=== PATIENT | female | born 1950 | race Caucasian/White ===

== ENCOUNTER 2021-08-10 17:17 | Inpatient (IN) ==
[2021-08-11] MEDS ORDERED: Ipratropium/Albuterol Neb 3 ML IH PRN (14:05)
[2021-08-11] MEDS: Acetaminophen 325 MG TABLET PO PRN (22:04)
[2021-08-11] MEDS: Megestrol Acetate 400 MG/10 ML UDC PO SCH (22:05)
[2021-08-11] MEDS: Gabapentin 300 MG CAPSULE PO SCH (22:06)
[2021-08-11] MEDS: Benzonatate 100 MG CAPSULE PO PRN (22:06)
[2021-08-11] MEDS: Budesonide/Formoterol 160/4.5 1 PUFF INH IH SCH (22:45)
[2021-08-12] MEDS: *HR* Enoxaparin 40 MG/0.4 ML SYRINGE SQ SCH (06:25)
[2021-08-12] MEDS ORDERED: Tiotropium 10 INH DOSE IH ONE (08:34)
[2021-08-12 09:39] LABS: Basophils # 0.1 K/mcL (0.0-0.2); Basophils % 0.8 %; Eosinophils # 0.1 K/mcL (0.0-0.6); Eosinophils % 0.8 %; Hematocrit 32.1 % (35.3-44.9); Hemoglobin 9.9 g/dL (11.5-15.4); Lymphocytes # 1.5 K/mcL (0.6-4.6); Lymphocytes % 18.9 %; Mean Corpuscular HGB Conc 30.8 g/dL (31.6-35.5); Mean Corpuscular Hemoglobin 30.4 pg (28.0-33.3); Mean Corpuscular Volume 98.5 fL (83.0-100.0); Mean Platelet Volume 8.8 fL (9.4-12.4); Monocytes # 1.3 K/mcL (0.0-1.3); Monocytes % 17.1 %; Neutrophils # 4.5 K/mcL (1.6-8.9); Platelet Count 776 K/mcL (140-400); Red Blood Count 3.26 M/mcL (3.82-4.97); Red Cell Distribution Width 17.3 % (11.5-14.5); Segmented Neutrophils % 58.4 %; White Blood Count 7.7 K/mcL (4.3-11.1)
[2021-08-12] MEDS: Budesonide/Formoterol 160/4.5 1 PUFF INH IH SCH ×2 (09:45→22:44)
[2021-08-12] MEDS: Tiotropium 10 INH DOSE IH SCH (09:46)
[2021-08-12 09:59] LABS: BUN/Creatinine Ratio 26 (6-26); Blood Urea Nitrogen 13 mg/dL (8-23); Calcium 8.9 mg/dL (8.6-10.3); Carbon Dioxide 26 mEq/L (23-29); Chloride 102 mEq/L (98-107); Glucose 88 mg/dL (70-105); Osmolality,Calculated 282 (280-300); Potassium 3.6 mEq/L (3.5-5.1); Sodium 136 mEq/L (136-145); eGFR For African Americans > 60 (> 60); eGFR For Non-African Americans > 60 (> 60)
[2021-08-12] MEDS: Cholecalciferol (D-3) 1,000 UNIT (25MCG) TABLET PO SCH (11:54)
[2021-08-12] MEDS: Aspirin Enteric Coated 81 MG Tablet PO SCH (11:54)
[2021-08-12] MEDS: hydroCHLOROthiazide 25 MG TABLET PO SCH (11:55)
[2021-08-12] MEDS: lisinopriL 5 MG TABLET PO SCH (11:55)
[2021-08-12] MEDS: Folic Acid 1 MG TABLET PO SCH (11:55)
[2021-08-12] MEDS: Gabapentin 300 MG CAPSULE PO SCH ×2 (11:55→21:53)
[2021-08-12] MEDS: Megestrol Acetate 400 MG/10 ML UDC PO SCH ×2 (11:56→21:52)
[2021-08-12] MEDS: Acetaminophen 325 MG TABLET PO PRN (17:30)
[2021-08-12] MEDS: Benzonatate 100 MG CAPSULE PO PRN (21:52)
[2021-08-13] MEDS: *HR* Enoxaparin 40 MG/0.4 ML SYRINGE SQ SCH (06:36)
[2021-08-13] MEDS: lisinopriL 5 MG TABLET PO SCH (09:16)
[2021-08-13] MEDS: Cholecalciferol (D-3) 1,000 UNIT (25MCG) TABLET PO SCH (09:16)
[2021-08-13] MEDS: Folic Acid 1 MG TABLET PO SCH (09:17)
[2021-08-13] MEDS: Gabapentin 300 MG CAPSULE PO SCH ×2 (09:18→22:35)
[2021-08-13] MEDS: hydroCHLOROthiazide 25 MG TABLET PO SCH (09:18)
[2021-08-13] MEDS: Megestrol Acetate 400 MG/10 ML UDC PO SCH ×2 (09:18→22:35)
[2021-08-13] MEDS: Aspirin Enteric Coated 81 MG Tablet PO SCH (09:18)
[2021-08-13] MEDS: Budesonide/Formoterol 160/4.5 1 PUFF INH IH SCH ×2 (11:35→22:26)
[2021-08-13] MEDS: Tiotropium 10 INH DOSE IH SCH (11:35)
[2021-08-13] MEDS: Acetaminophen 325 MG TABLET PO PRN (11:40)
[2021-08-14] MEDS: *HR* Enoxaparin 40 MG/0.4 ML SYRINGE SQ SCH (06:29)
[2021-08-14] MEDS: Cholecalciferol (D-3) 1,000 UNIT (25MCG) TABLET PO SCH (10:00)
[2021-08-14] MEDS: Megestrol Acetate 400 MG/10 ML UDC PO SCH ×2 (10:00→20:18)
[2021-08-14] MEDS: Gabapentin 300 MG CAPSULE PO SCH ×2 (10:00→20:18)
[2021-08-14] MEDS: Aspirin Enteric Coated 81 MG Tablet PO SCH (10:00)
[2021-08-14] MEDS: Folic Acid 1 MG TABLET PO SCH (10:00)
[2021-08-14] MEDS: lisinopriL 5 MG TABLET PO SCH (10:01)
[2021-08-14] MEDS: hydroCHLOROthiazide 25 MG TABLET PO SCH (10:01)
[2021-08-14] MEDS: Tiotropium 10 INH DOSE IH SCH (10:40)
[2021-08-14] MEDS: Budesonide/Formoterol 160/4.5 1 PUFF INH IH SCH ×2 (10:40→22:30)
[2021-08-14] MEDS: Acetaminophen 325 MG TABLET PO PRN ×2 (12:26→21:36)
[2021-08-15] MEDS: *HR* Enoxaparin 40 MG/0.4 ML SYRINGE SQ SCH (05:55)
[2021-08-15] MEDS: Megestrol Acetate 400 MG/10 ML UDC PO SCH ×2 (08:33→19:37)
[2021-08-15] MEDS: Aspirin Enteric Coated 81 MG Tablet PO SCH (08:33)
[2021-08-15] MEDS: Acetaminophen 325 MG TABLET PO PRN ×3 (08:33→20:36)
[2021-08-15] MEDS: Gabapentin 300 MG CAPSULE PO SCH ×2 (08:33→19:37)
[2021-08-15] MEDS: Cholecalciferol (D-3) 1,000 UNIT (25MCG) TABLET PO SCH (08:34)
[2021-08-15] MEDS: hydroCHLOROthiazide 25 MG TABLET PO SCH (08:34)
[2021-08-15] MEDS: lisinopriL 5 MG TABLET PO SCH (08:34)
[2021-08-15] MEDS: Folic Acid 1 MG TABLET PO SCH (08:34)
[2021-08-15] MEDS: Budesonide/Formoterol 160/4.5 1 PUFF INH IH SCH ×2 (09:28→22:32)
[2021-08-15] MEDS: Tiotropium 10 INH DOSE IH SCH (09:29)
[2021-08-16] MEDS: *HR* Enoxaparin 40 MG/0.4 ML SYRINGE SQ SCH (06:31)
[2021-08-16] MEDS: Cholecalciferol (D-3) 1,000 UNIT (25MCG) TABLET PO SCH (08:15)
[2021-08-16] MEDS: Folic Acid 1 MG TABLET PO SCH (08:15)
[2021-08-16] MEDS: Megestrol Acetate 400 MG/10 ML UDC PO SCH ×2 (08:15→20:13)
[2021-08-16] MEDS: Aspirin Enteric Coated 81 MG Tablet PO SCH (08:15)
[2021-08-16] MEDS: Acetaminophen 325 MG TABLET PO PRN ×2 (08:15→20:13)
[2021-08-16] MEDS: hydroCHLOROthiazide 25 MG TABLET PO SCH (08:16)
[2021-08-16] MEDS: lisinopriL 5 MG TABLET PO SCH (08:16)
[2021-08-16] MEDS: Gabapentin 300 MG CAPSULE PO SCH ×2 (08:16→20:13)
[2021-08-16 08:52] LABS: Basophils # 0.1 K/mcL (0.0-0.2); Basophils % 0.4 %; Eosinophils # 0.1 K/mcL (0.0-0.6); Eosinophils % 0.5 %; Hematocrit 35.5 % (35.3-44.9); Immature Granulocytes % 2.5 % (0-4); Lymphocytes % 17.5 %; Mean Corpuscular Hemoglobin 29.7 pg (28.0-33.3); Mean Corpuscular Volume 95.9 fL (83.0-100.0); Mean Platelet Volume 8.3 fL (9.4-12.4); Monocytes # 1.4 K/mcL (0.0-1.3); Monocytes % 12.1 %; Neutrophils # 7.6 K/mcL (1.6-8.9); Platelet Count 857 K/mcL (140-400); Red Cell Distribution Width 17.6 % (11.5-14.5); White Blood Count 11.3 K/mcL (4.3-11.1)
[2021-08-16 09:06] LABS: BUN/Creatinine Ratio 23 (6-26); Blood Urea Nitrogen 14 mg/dL (8-23); Calcium 9.3 mg/dL (8.6-10.3); Carbon Dioxide 26 mEq/L (23-29); Chloride 98 mEq/L (98-107); Glucose 86 mg/dL (70-105); Osmolality,Calculated 270 (280-300); Potassium 4.1 mEq/L (3.5-5.1); Sodium 130 mEq/L (136-145); eGFR For African Americans > 60 (> 60); eGFR For Non-African Americans > 60 (> 60)
[2021-08-16] MEDS: Budesonide/Formoterol 160/4.5 1 PUFF INH IH SCH ×2 (09:46→21:43)
[2021-08-16] MEDS: Tiotropium 10 INH DOSE IH SCH (09:46)
[2021-08-17] MEDS: *HR* Enoxaparin 40 MG/0.4 ML SYRINGE SQ SCH (05:23)
[2021-08-17] MEDS: Megestrol Acetate 400 MG/10 ML UDC PO SCH ×2 (09:12→19:48)
[2021-08-17] MEDS: Cholecalciferol (D-3) 1,000 UNIT (25MCG) TABLET PO SCH (09:13)
[2021-08-17] MEDS: Folic Acid 1 MG TABLET PO SCH (09:13)
[2021-08-17] MEDS: Gabapentin 300 MG CAPSULE PO SCH ×2 (09:13→19:47)
[2021-08-17] MEDS: hydroCHLOROthiazide 25 MG TABLET PO SCH (09:13)
[2021-08-17] MEDS: lisinopriL 5 MG TABLET PO SCH (09:13)
[2021-08-17] MEDS: Aspirin Enteric Coated 81 MG Tablet PO SCH (09:13)
[2021-08-17] MEDS: Budesonide/Formoterol 160/4.5 1 PUFF INH IH SCH ×2 (10:09→21:04)
[2021-08-17] MEDS: Tiotropium 10 INH DOSE IH SCH (10:09)
[2021-08-17] MEDS: Acetaminophen 325 MG TABLET PO PRN ×2 (11:47→19:47)
[2021-08-18] MEDS: *HR* Enoxaparin 40 MG/0.4 ML SYRINGE SQ SCH (05:18)
[2021-08-18] MEDS: Cholecalciferol (D-3) 1,000 UNIT (25MCG) TABLET PO SCH (09:35)
[2021-08-18] MEDS: Acetaminophen 325 MG TABLET PO PRN (09:35)
[2021-08-18] MEDS: Aspirin Enteric Coated 81 MG Tablet PO SCH (09:35)
[2021-08-18] MEDS: Folic Acid 1 MG TABLET PO SCH (09:35)
[2021-08-18] MEDS: Gabapentin 300 MG CAPSULE PO SCH ×2 (09:35→23:11)
[2021-08-18] MEDS: Megestrol Acetate 400 MG/10 ML UDC PO SCH ×2 (09:35→23:02)
[2021-08-18] MEDS: hydroCHLOROthiazide 25 MG TABLET PO SCH (09:38)
[2021-08-18] MEDS: Tiotropium 10 INH DOSE IH SCH (09:46)
[2021-08-18] MEDS: Budesonide/Formoterol 160/4.5 1 PUFF INH IH SCH ×2 (09:46→21:59)
[2021-08-18] MEDS ORDERED: Ondansetron ODT 4 MG TAB.RAPDIS SL PRN (14:47)
[2021-08-19] MEDS: *HR* Enoxaparin 40 MG/0.4 ML SYRINGE SQ SCH (06:14)
[2021-08-19] MEDS: lisinopriL 5 MG TABLET PO SCH (07:41)
[2021-08-19] MEDS: Cholecalciferol (D-3) 1,000 UNIT (25MCG) TABLET PO SCH (08:14)
[2021-08-19] MEDS: Gabapentin 300 MG CAPSULE PO SCH ×2 (08:14→20:01)
[2021-08-19] MEDS: Aspirin Enteric Coated 81 MG Tablet PO SCH (08:14)
[2021-08-19] MEDS: Folic Acid 1 MG TABLET PO SCH (08:14)
[2021-08-19] MEDS: Megestrol Acetate 400 MG/10 ML UDC PO SCH ×2 (08:14→20:00)
[2021-08-19] MEDS: hydroCHLOROthiazide 25 MG TABLET PO SCH (08:15)
[2021-08-19] MEDS: Sennosides/Docusate Sodium TABLET PO SCH ×2 (11:47→20:00)
[2021-08-19] MEDS: Budesonide/Formoterol 160/4.5 1 PUFF INH IH SCH ×2 (12:28→22:31)
[2021-08-19] MEDS: Tiotropium 10 INH DOSE IH SCH (12:28)
[2021-08-19] MEDS: Acetaminophen 325 MG TABLET PO PRN (13:33)
[2021-08-20] MEDS: *HR* Enoxaparin 40 MG/0.4 ML SYRINGE SQ SCH (05:39)
[2021-08-20] MEDS: hydroCHLOROthiazide 25 MG TABLET PO SCH (09:33)
[2021-08-20] MEDS: Folic Acid 1 MG TABLET PO SCH (09:33)
[2021-08-20] MEDS: Sennosides/Docusate Sodium TABLET PO SCH ×2 (09:33→19:51)
[2021-08-20] MEDS: Aspirin Enteric Coated 81 MG Tablet PO SCH (09:33)
[2021-08-20] MEDS: Cholecalciferol (D-3) 1,000 UNIT (25MCG) TABLET PO SCH (09:34)
[2021-08-20] MEDS: Megestrol Acetate 400 MG/10 ML UDC PO SCH ×2 (09:34→19:50)
[2021-08-20] MEDS: Gabapentin 300 MG CAPSULE PO SCH ×2 (09:34→19:51)
[2021-08-20] MEDS: Budesonide/Formoterol 160/4.5 1 PUFF INH IH SCH ×2 (09:46→22:58)
[2021-08-20] MEDS: Tiotropium 10 INH DOSE IH SCH (09:46)
[2021-08-20] MEDS: Acetaminophen 325 MG TABLET PO PRN (11:40)
[2021-08-21] MEDS: *HR* Enoxaparin 40 MG/0.4 ML SYRINGE SQ SCH (05:38)
[2021-08-21 07:43] LABS: Basophils % 0.2 %; Eosinophils # 0.2 K/mcL (0.0-0.6); Eosinophils % 1.3 %; Hematocrit 31.2 % (35.3-44.9); Hemoglobin 9.8 g/dL (11.5-15.4); Immature Granulocytes % 1.2 % (0-4); Lymphocytes # 1.9 K/mcL (0.6-4.6); Mean Corpuscular HGB Conc 31.4 g/dL (31.6-35.5); Mean Corpuscular Hemoglobin 30.3 pg (28.0-33.3); Mean Corpuscular Volume 96.6 fL (83.0-100.0); Mean Platelet Volume 8.7 fL (9.4-12.4); Monocytes # 1.6 K/mcL (0.0-1.3); Monocytes % 13.4 %; Neutrophils # 8.2 K/mcL (1.6-8.9); Platelet Count 644 K/mcL (140-400); Red Blood Count 3.23 M/mcL (3.82-4.97); Red Cell Distribution Width 17.6 % (11.5-14.5); Segmented Neutrophils % 67.9 %
[2021-08-21] MEDS: hydroCHLOROthiazide 25 MG TABLET PO SCH (07:53)
[2021-08-21] MEDS: Gabapentin 300 MG CAPSULE PO SCH ×2 (07:58→19:57)
[2021-08-21] MEDS: Cholecalciferol (D-3) 1,000 UNIT (25MCG) TABLET PO SCH (07:58)
[2021-08-21] MEDS: Megestrol Acetate 400 MG/10 ML UDC PO SCH ×2 (07:58→19:58)
[2021-08-21] MEDS: Folic Acid 1 MG TABLET PO SCH (07:58)
[2021-08-21] MEDS: Aspirin Enteric Coated 81 MG Tablet PO SCH (07:58)
[2021-08-21] MEDS: Sennosides/Docusate Sodium TABLET PO SCH ×2 (07:58→19:57)
[2021-08-21 08:10] LABS: BUN/Creatinine Ratio 29 (6-26); Blood Urea Nitrogen 15 mg/dL (8-23); Calcium 8.9 mg/dL (8.6-10.3); Carbon Dioxide 24 mEq/L (23-29); Chloride 99 mEq/L (98-107); Glucose 86 mg/dL (70-105); Osmolality,Calculated 272 (280-300); Potassium 3.8 mEq/L (3.5-5.1); Sodium 131 mEq/L (136-145); eGFR For African Americans > 60 (> 60); eGFR For Non-African Americans > 60 (> 60)
[2021-08-21] MEDS: Tiotropium 10 INH DOSE IH SCH (09:45)
[2021-08-21] MEDS: Budesonide/Formoterol 160/4.5 1 PUFF INH IH SCH ×2 (09:45→22:08)
[2021-08-21] MEDS: Acetaminophen 325 MG TABLET PO PRN (19:58)
[2021-08-22] MEDS: *HR* Enoxaparin 40 MG/0.4 ML SYRINGE SQ SCH (06:06)
[2021-08-22] MEDS: hydroCHLOROthiazide 25 MG TABLET PO SCH (08:35)
[2021-08-22] MEDS: Megestrol Acetate 400 MG/10 ML UDC PO SCH ×2 (08:36→20:44)
[2021-08-22] MEDS: Folic Acid 1 MG TABLET PO SCH (08:37)
[2021-08-22] MEDS: Gabapentin 300 MG CAPSULE PO SCH ×2 (08:37→20:43)
[2021-08-22] MEDS: Aspirin Enteric Coated 81 MG Tablet PO SCH (08:37)
[2021-08-22] MEDS: Sennosides/Docusate Sodium TABLET PO SCH ×2 (08:38→20:43)
[2021-08-22] MEDS: Cholecalciferol (D-3) 1,000 UNIT (25MCG) TABLET PO SCH (08:38)
[2021-08-22] MEDS: Budesonide/Formoterol 160/4.5 1 PUFF INH IH SCH ×2 (09:01→19:37)
[2021-08-22] MEDS: Tiotropium 10 INH DOSE IH SCH (09:01)
[2021-08-23] MEDS: *HR* Enoxaparin 40 MG/0.4 ML SYRINGE SQ SCH (05:18)
[2021-08-23] MEDS: Sennosides/Docusate Sodium TABLET PO SCH ×2 (08:41→19:47)
[2021-08-23] MEDS: Aspirin Enteric Coated 81 MG Tablet PO SCH (08:41)
[2021-08-23] MEDS: Megestrol Acetate 400 MG/10 ML UDC PO SCH ×2 (08:41→19:47)
[2021-08-23] MEDS: Gabapentin 300 MG CAPSULE PO SCH ×2 (08:42→19:47)
[2021-08-23] MEDS: Cholecalciferol (D-3) 1,000 UNIT (25MCG) TABLET PO SCH (08:42)
[2021-08-23] MEDS: Folic Acid 1 MG TABLET PO SCH (08:42)
[2021-08-23] MEDS: Tiotropium 10 INH DOSE IH SCH (10:40)
[2021-08-23] MEDS: Budesonide/Formoterol 160/4.5 1 PUFF INH IH SCH ×2 (10:40→21:24)
[2021-08-23] MEDS: Acetaminophen 325 MG TABLET PO PRN (18:08)
[2021-08-24] MEDS: *HR* Enoxaparin 40 MG/0.4 ML SYRINGE SQ SCH (06:11)
[2021-08-24] MEDS: Tiotropium 10 INH DOSE IH SCH (10:59)
[2021-08-24] MEDS: Budesonide/Formoterol 160/4.5 1 PUFF INH IH SCH ×2 (10:59→22:15)
[2021-08-24] MEDS: Cholecalciferol (D-3) 1,000 UNIT (25MCG) TABLET PO SCH (11:12)
[2021-08-24] MEDS: Aspirin Enteric Coated 81 MG Tablet PO SCH (11:12)
[2021-08-24] MEDS: Sennosides/Docusate Sodium TABLET PO SCH ×2 (11:12→19:49)
[2021-08-24] MEDS: Megestrol Acetate 400 MG/10 ML UDC PO SCH ×2 (11:12→19:50)
[2021-08-24] MEDS: Gabapentin 300 MG CAPSULE PO SCH ×2 (11:12→19:50)
[2021-08-24] MEDS: Folic Acid 1 MG TABLET PO SCH (11:12)
[2021-08-24] MEDS: Acetaminophen 325 MG TABLET PO PRN ×2 (11:27→19:50)
[2021-08-25] MEDS: *HR* Enoxaparin 40 MG/0.4 ML SYRINGE SQ SCH (05:24)
[2021-08-25] MEDS: Tiotropium 10 INH DOSE IH SCH (09:12)
[2021-08-25] MEDS: Budesonide/Formoterol 160/4.5 1 PUFF INH IH SCH ×2 (09:12→22:06)
[2021-08-25] MEDS: Gabapentin 300 MG CAPSULE PO SCH ×2 (09:33→19:43)
[2021-08-25] MEDS: Aspirin Enteric Coated 81 MG Tablet PO SCH (09:33)
[2021-08-25] MEDS: Sennosides/Docusate Sodium TABLET PO SCH ×2 (09:33→19:43)
[2021-08-25] MEDS: Cholecalciferol (D-3) 1,000 UNIT (25MCG) TABLET PO SCH (09:34)
[2021-08-25] MEDS: Folic Acid 1 MG TABLET PO SCH (09:34)
[2021-08-25] MEDS: Megestrol Acetate 400 MG/10 ML UDC PO SCH ×2 (09:34→19:43)
[2021-08-25] MEDS: Acetaminophen 325 MG TABLET PO PRN (17:05)
[2021-08-26] MEDS: *HR* Enoxaparin 40 MG/0.4 ML SYRINGE SQ SCH (05:36)
[2021-08-26] MEDS: Cholecalciferol (D-3) 1,000 UNIT (25MCG) TABLET PO SCH (09:02)
[2021-08-26] MEDS: Gabapentin 300 MG CAPSULE PO SCH ×2 (09:03→21:40)
[2021-08-26] MEDS: Aspirin Enteric Coated 81 MG Tablet PO SCH (09:03)
[2021-08-26] MEDS: Folic Acid 1 MG TABLET PO SCH (09:03)
[2021-08-26] MEDS: Sennosides/Docusate Sodium TABLET PO SCH ×2 (09:03→21:40)
[2021-08-26] MEDS: Megestrol Acetate 400 MG/10 ML UDC PO SCH ×2 (09:05→21:39)
[2021-08-26] MEDS: Budesonide/Formoterol 160/4.5 1 PUFF INH IH SCH (09:45)
[2021-08-26] MEDS: Tiotropium 10 INH DOSE IH SCH (09:45)
[2021-08-26] MEDS: Acetaminophen 325 MG TABLET PO PRN (16:50)
[2021-08-27] MEDS: Budesonide/Formoterol 160/4.5 1 PUFF INH IH SCH ×3 (01:24→21:56)
[2021-08-27] MEDS: *HR* Enoxaparin 40 MG/0.4 ML SYRINGE SQ SCH (05:34)
[2021-08-27] MEDS: Cholecalciferol (D-3) 1,000 UNIT (25MCG) TABLET PO SCH (09:45)
[2021-08-27] MEDS: Aspirin Enteric Coated 81 MG Tablet PO SCH (09:45)
[2021-08-27] MEDS: Gabapentin 300 MG CAPSULE PO SCH ×2 (09:46→20:11)
[2021-08-27] MEDS: Sennosides/Docusate Sodium TABLET PO SCH ×2 (09:46→20:11)
[2021-08-27] MEDS: Folic Acid 1 MG TABLET PO SCH (09:47)
[2021-08-27] MEDS: Megestrol Acetate 400 MG/10 ML UDC PO SCH ×2 (09:48→20:12)
[2021-08-27] MEDS: Tiotropium 10 INH DOSE IH SCH (10:30)
[2021-08-27] MEDS: Acetaminophen 325 MG TABLET PO PRN (20:16)
[2021-08-28] MEDS: *HR* Enoxaparin 40 MG/0.4 ML SYRINGE SQ SCH (05:53)
[2021-08-28] MEDS: Acetaminophen 325 MG TABLET PO PRN ×2 (05:53→21:27)
[2021-08-28 09:50] LABS: Basophils # 0.1 K/mcL (0.0-0.2); Basophils % 0.5 %; Eosinophils # 0.5 K/mcL (0.0-0.6); Eosinophils % 5.5 %; Hematocrit 34.2 % (35.3-44.9); Hemoglobin 10.6 g/dL (11.5-15.4); Immature Granulocytes % 1.3 % (0-4); Lymphocytes % 19.9 %; Mean Corpuscular Hemoglobin 30.4 pg (28.0-33.3); Mean Platelet Volume 8.1 fL (9.4-12.4); Monocytes # 1.1 K/mcL (0.0-1.3); Monocytes % 10.8 %; Neutrophils # 6.1 K/mcL (1.6-8.9); Platelet Count 379 K/mcL (140-400); Red Blood Count 3.49 M/mcL (3.82-4.97); Red Cell Distribution Width 18.2 % (11.5-14.5); White Blood Count 9.8 K/mcL (4.3-11.1)
[2021-08-28] MEDS: Folic Acid 1 MG TABLET PO SCH (10:09)
[2021-08-28] MEDS: Gabapentin 300 MG CAPSULE PO SCH ×2 (10:09→21:29)
[2021-08-28] MEDS: Cholecalciferol (D-3) 1,000 UNIT (25MCG) TABLET PO SCH (10:09)
[2021-08-28] MEDS: Aspirin Enteric Coated 81 MG Tablet PO SCH (10:09)
[2021-08-28] MEDS: Sennosides/Docusate Sodium TABLET PO SCH ×2 (10:10→21:29)
[2021-08-28] MEDS: Megestrol Acetate 400 MG/10 ML UDC PO SCH ×2 (10:11→21:28)
[2021-08-28 10:42] LABS: BUN/Creatinine Ratio 38 (6-26); Blood Urea Nitrogen 21 mg/dL (8-23); Calcium 8.6 mg/dL (8.6-10.3); Carbon Dioxide 24 mEq/L (23-29); Chloride 100 mEq/L (98-107); Glucose 77 mg/dL (70-105); Osmolality,Calculated 278 (280-300); Potassium 3.7 mEq/L (3.5-5.1); Sodium 133 mEq/L (136-145); eGFR For African Americans > 60 (> 60); eGFR For Non-African Americans > 60 (> 60)
[2021-08-28] MEDS: Tiotropium 10 INH DOSE IH SCH (11:07)
[2021-08-28] MEDS: Budesonide/Formoterol 160/4.5 1 PUFF INH IH SCH ×2 (11:07→21:15)
[2021-08-29] MEDS: *HR* Enoxaparin 40 MG/0.4 ML SYRINGE SQ SCH (06:36)
[2021-08-29] MEDS: Gabapentin 300 MG CAPSULE PO SCH ×2 (09:33→20:48)
[2021-08-29] MEDS: Aspirin Enteric Coated 81 MG Tablet PO SCH (09:33)
[2021-08-29] MEDS: Sennosides/Docusate Sodium TABLET PO SCH ×2 (09:34→20:48)
[2021-08-29] MEDS: Cholecalciferol (D-3) 1,000 UNIT (25MCG) TABLET PO SCH (09:34)
[2021-08-29] MEDS: Folic Acid 1 MG TABLET PO SCH (09:34)
[2021-08-29] MEDS: Megestrol Acetate 400 MG/10 ML UDC PO SCH ×2 (09:36→20:48)
[2021-08-29] MEDS: Budesonide/Formoterol 160/4.5 1 PUFF INH IH SCH ×2 (10:04→21:42)
[2021-08-29] MEDS: Tiotropium 10 INH DOSE IH SCH (10:04)
[2021-08-29] MEDS: Acetaminophen 325 MG TABLET PO PRN (20:47)
[2021-08-30] MEDS: *HR* Enoxaparin 40 MG/0.4 ML SYRINGE SQ SCH (06:09)
[2021-08-30] MEDS: Aspirin Enteric Coated 81 MG Tablet PO SCH (10:04)
[2021-08-30] MEDS: Gabapentin 300 MG CAPSULE PO SCH ×2 (10:04→19:44)
[2021-08-30] MEDS: Folic Acid 1 MG TABLET PO SCH (10:04)
[2021-08-30] MEDS: Cholecalciferol (D-3) 1,000 UNIT (25MCG) TABLET PO SCH (10:05)
[2021-08-30] MEDS: Sennosides/Docusate Sodium TABLET PO SCH ×2 (10:05→19:44)
[2021-08-30] MEDS: Megestrol Acetate 400 MG/10 ML UDC PO SCH ×2 (10:06→19:44)
[2021-08-30] MEDS: Tiotropium 10 INH DOSE IH SCH (10:20)
[2021-08-30] MEDS: Budesonide/Formoterol 160/4.5 1 PUFF INH IH SCH ×2 (10:20→21:35)
[2021-08-30] MEDS: Acetaminophen 325 MG TABLET PO PRN (19:44)
[2021-08-31] MEDS: *HR* Enoxaparin 40 MG/0.4 ML SYRINGE SQ SCH (06:01)
[2021-08-31] MEDS: Tiotropium 10 INH DOSE IH SCH (10:34)
[2021-08-31] MEDS: Budesonide/Formoterol 160/4.5 1 PUFF INH IH SCH ×2 (10:34→22:19)
[2021-08-31] MEDS: Cholecalciferol (D-3) 1,000 UNIT (25MCG) TABLET PO SCH (10:54)
[2021-08-31] MEDS: Gabapentin 300 MG CAPSULE PO SCH ×2 (10:54→20:33)
[2021-08-31] MEDS: Aspirin Enteric Coated 81 MG Tablet PO SCH (10:54)
[2021-08-31] MEDS: Folic Acid 1 MG TABLET PO SCH (10:54)
[2021-08-31] MEDS: Sennosides/Docusate Sodium TABLET PO SCH ×2 (10:54→20:33)
[2021-08-31] MEDS: Megestrol Acetate 400 MG/10 ML UDC PO SCH ×2 (10:55→20:32)
[2021-08-31] MEDS: Acetaminophen 325 MG TABLET PO PRN ×2 (10:57→20:33)
[2021-09-01] MEDS: *HR* Enoxaparin 40 MG/0.4 ML SYRINGE SQ SCH (05:57)
[2021-09-01] MEDS: Megestrol Acetate 400 MG/10 ML UDC PO SCH ×2 (10:14→20:56)
[2021-09-01] MEDS: Gabapentin 300 MG CAPSULE PO SCH ×2 (10:14→20:57)
[2021-09-01] MEDS: Cholecalciferol (D-3) 1,000 UNIT (25MCG) TABLET PO SCH (10:14)
[2021-09-01] MEDS: Acetaminophen 325 MG TABLET PO PRN ×2 (10:14→18:39)
[2021-09-01] MEDS: Aspirin Enteric Coated 81 MG Tablet PO SCH (10:14)
[2021-09-01] MEDS: Sennosides/Docusate Sodium TABLET PO SCH ×2 (10:15→20:57)
[2021-09-01] MEDS: Folic Acid 1 MG TABLET PO SCH (10:15)
[2021-09-01] MEDS: Tiotropium 10 INH DOSE IH SCH (10:45)
[2021-09-01] MEDS: Budesonide/Formoterol 160/4.5 1 PUFF INH IH SCH ×2 (10:46→21:38)
[2021-09-02] MEDS: *HR* Enoxaparin 40 MG/0.4 ML SYRINGE SQ SCH (06:05)
[2021-09-02] MEDS: Acetaminophen 325 MG TABLET PO PRN (10:06)
[2021-09-02] MEDS: Folic Acid 1 MG TABLET PO SCH (10:07)
[2021-09-02] MEDS: Sennosides/Docusate Sodium TABLET PO SCH (10:07)
[2021-09-02] MEDS: Aspirin Enteric Coated 81 MG Tablet PO SCH (10:07)
[2021-09-02] MEDS: Cholecalciferol (D-3) 1,000 UNIT (25MCG) TABLET PO SCH (10:07)
[2021-09-02] MEDS: Gabapentin 300 MG CAPSULE PO SCH (10:07)
[2021-09-02] MEDS: Megestrol Acetate 400 MG/10 ML UDC PO SCH (10:08)
[2021-09-02] MEDS: Budesonide/Formoterol 160/4.5 1 PUFF INH IH SCH (11:14)
[2021-09-02] MEDS: Tiotropium 10 INH DOSE IH SCH (11:14)
[2021-09-02 19:24] VITALS: BP 110/58
[2021-09-02 19:26] VITALS: PULSE 79; RESP 16; TEMP 98.9; O2SAT 98
== END 2021-09-02 12:40 | disposition home health service (06) | DRG 178 ==
LOC: INPPIK 08-11 13:57
PROVIDERS: ADMIT Family Medicine; ATTEND Family Medicine